=== PATIENT | female | born 1985 | race African-American/Black ===

== ENCOUNTER 2018-08-23 19:31 | Emergency (ER) | payer SELFPAY ==
[~2018-08-23] VITALS: Ht 160 cm; Wt 130.2 kg
[~2018-08-23 19:31] MED LIST: CLINDAMYCIN HC300 MG PO; EES400 MG PO; FE-TABS325 MG PO; MOTRIN600 MG PO; MULTIPLE VITAMI1 CAP PO; NEOSPORIN1 OI1 TP; PREDNICOT20 MG PO; SELSUN SULFIDE120 ML TP; ZITHROMAX Z PA250 MG PO; [UNRECOGNIZED DRUG - REMARK]; [UNRECOGNIZED DRUG - REMARK]
[2018-08-23 19:55] LABS: BASO # 0.1 10*3/uL (0.0-0.1); BASO % 0.6 % (0.0-1.0); EOS # 0.1 10*3/uL (0.0-0.4); EOS % 0.9 % (1.0-4.0); HEMATOCRIT 37.9 % (37.0-47.0); HEMOGLOBIN 12.4 g/dl (12.0-16.0); LYMPH % 38.3 % (27.0-41.0); MEAN CORPUSCULAR HGB 29.1 pg (27.0-31.0); MEAN CORPUSCULAR HGB CONC 32.7 g/dl (33.0-37.0); MONO # 0.6 10*3/uL (0.1-1.0); MONO % 4.6 % (3.0-9.0); NEUT # 7.2 10*3/uL (2.3-7.9); NEUT % 55.3 % (47.0-73.0); PLATELET COUNT AUTOMATED 374 10*3/uL (130-400); RED BLOOD COUNT 4.26 10*6/uL (4.10-5.10); RED CELL DISTRI WIDTH 13.5 % (0-14.5)
[2018-08-23 20:12] LABS: ALKALINE PHOSPHATASE 106 U/L (45-117); BUN 10 mg/dl (7-24); CHLORIDE 106 mmol/L (98-107); CREATININE 0.62 mg/dL (0.55-1.02); POTASSIUM 3.5 mmol/L (3.5-5.1); SGOT/AST 12 IU/L (3-35); SGPT/ALT 21 U/L (12-78); SODIUM 140 mmol/L (136-145); TOTAL PROTEIN 7.6 gm/dL (6.4-8.2)
[2018-08-23 20:48] LABS: BILIRUBIN NEGATIVE (NEGATIVE); BLOOD 3+ (NEGATIVE); CLARITY CLEAR (CLEAR); COLOR YELLOW (YELLOW); GLUCOSE NEGATIVE (NEGATIVE); KETONE NEGATIVE (NEGATIVE); LEUKO ESTERASE NEGATIVE (NEGATIVE); NITRITE NEGATIVE (NEGATIVE); PH 5.5 (5.0-9.0); SPECIFIC GRAVITY >= 1.030 (1.005-1.030); UROBILINOGEN 0.2 E.U./dl (0.2-1.0)
[2018-08-23 20:57] LABS: BACTERIA 2+; MUCOUS 2+; RBC 16-20 rbc/hpf (0-2)
== END 2018-08-23 21:55 | disposition home or self-care (01) ==
LOC: ED 19:31
PROVIDERS: Physician Assistant
DX: R73.9 Hyperglycemia, unspecified (principal); Z91.048 Other nonmedicinal substance allergy status; Z79.2 Long term (current) use of antibiotics; Z79.899 Other long term (current) drug therapy